=== PATIENT | male | born 1970 | race Caucasian/White ===

== ENCOUNTER 2018-05-19 14:45 | Outpatient (CLI) | payer OTHER ==
[2018-05-19 18:01] LABS: BASOPHILS % (AUTO) 0.2 %; EOSINOPHILS # (AUTO) 0.2 10^3/uL (0.0-0.7); EOSINOPHILS % (AUTO) 2.6 %; HGB - HEMOGLOBIN 15.7 g/dL (14.0-18.0); LYMPHOCYTES # (AUTO) 2.6 10^3/uL (1.5-3.5); LYMPHOCYTES % (AUTO) 30.9 %; MEAN CORPUSCULAR HEMOGLOBIN 31.4 pg (27.0-31.0); MEAN CORPUSCULAR HGB CONC 34.9 g/dL (32.0-36.0); MEAN PLATELET VOLUME 9.6 fL (7.4-11.4); MONOCYTES # (AUTO) 0.7 10^3/uL (0.0-1.0); MONOCYTES % (AUTO) 8.3 %; NEUTROPHILS # (AUTO) 4.9 10^3/uL (1.5-6.6); PLT - PLATELET COUNT 202 10^3/uL (130-450); RED CELL DISTRIBUTION WIDTH 14.4 % (12.0-15.0); WHITE BLOOD COUNT 8.4 x10^3/uL (4.8-10.8)
[2018-05-19 18:14] LABS: ALBUMIN 3.8 g/dL (3.2-5.5); ALBUMIN/GLOBULIN RATIO 1.2 (1.0-2.2); BILIRUBIN,TOTAL 0.9 mg/dL (0.2-1.0); CALCIUM 9.2 mg/dL (8.5-10.3); CREATININE 1.1 mg/dL (0.6-1.2); TOTAL PROTEIN 7.1 g/dL (6.7-8.2)
== END 2018-05-19 14:46 | disposition home or self-care (01) ==
LOC: LAB.F 14:45
PROVIDERS: ATTEND Physician Assistant Medical
DX: I10 Essential (primary) hypertension (principal)
CPT/HCPCS: 36415; 80053; 85025

== ENCOUNTER 2019-03-22 19:14 | Observation (INO) | payer OTHER ==
[2019-03-22 19:37] LABS: EOSINOPHILS % (AUTO) 0.1 %
[2019-03-22 19:40] LABS: BILIRUBIN,URINE NEGATIVE (NEGATIVE); GLUCOSE, URINE (UA) 100 mg/dL (NEGATIVE); KETONES,URINE (UA) NEGATIVE (NEGATIVE); LEUKOCYTE ESTERASE, URINE NEGATIVE (NEGATIVE); NITRITE,URINE NEGATIVE (NEGATIVE); OCCULT BLOOD,URINE SMALL (NEGATIVE); PH,URINE 5.5 PH (5.0-7.5); PROTEIN,URINE TRACE mg/dL (NEGATIVE); UROBILINOGEN,URINE 0.2 (NORMAL) E.U./dL (NORMAL)
[2019-03-22 19:42] LABS: BASOPHILS % (AUTO) 0.2 %; HGB - HEMOGLOBIN 17.9 g/dL (14.0-18.0); LYMPHOCYTES # (AUTO) 1.8 10^3/uL (1.5-3.5); LYMPHOCYTES % (AUTO) 10.1 %; MEAN CORPUSCULAR HGB CONC 32.8 g/dL (32.0-36.0); MEAN CORPUSCULAR VOLUME 91.4 fL (80.0-94.0); MEAN PLATELET VOLUME 9.9 fL (7.4-11.4); MONOCYTES # (AUTO) 1.8 10^3/uL (0.0-1.0); MONOCYTES % (AUTO) 10.2 %; NEUTROPHILS # (AUTO) 13.9 10^3/uL (1.5-6.6); NEUTROPHILS % (AUTO) 78.9 %; PLT - PLATELET COUNT 230 10^3/uL (130-450); RED BLOOD COUNT 5.96 10^6/uL (4.70-6.10); RED CELL DISTRIBUTION WIDTH 14.6 % (12.0-15.0); WHITE BLOOD COUNT 17.6 x10^3/uL (4.8-10.8)
[2019-03-22 19:42] LABS: CLARITY,URINE CLEAR (CLEAR)
[2019-03-22 19:44] LABS: INR 4.3 (0.8-1.2)
[2019-03-22 19:50] LABS: BACTERIA,URINE None Seen /HPF (None Seen); RBC,URINE 0-5 /HPF (0-5); SQUAMOUS EPITHELIAL CELL,UR NONE SEEN (<= Few)
[2019-03-22 19:50] LABS: ALBUMIN 4.1 g/dL (3.2-5.5); ALBUMIN/GLOBULIN RATIO 1.1 (1.0-2.2); BILIRUBIN,TOTAL 1.5 mg/dL (0.2-1.0); CALCIUM 9.2 mg/dL (8.5-10.3); CREATININE 1.1 mg/dL (0.6-1.2); TOTAL PROTEIN 7.8 g/dL (6.7-8.2)
[2019-03-22 20:01] LABS: DIFFERENTIAL COMMENT MANUAL=AUTO DIFF; PLATELET ESTIMATE, MANUAL NORMAL (130-450,000) (NORMAL); PLATELET MORPHOLOGY NORMAL APPEARANCE (NORMAL); RBC MORPHOLOGY (MULTIPLE) NORMAL APPEARANCE (NORMAL)
[2019-03-22] MEDS ORDERED: SODIUM CHLORIDE 0.9% 1,000 ML IV ONE ×2 (20:19→22:07)
--- NOTE | 2019-03-22 20:21 | ED Physician Documentation ---
PD HPI ABD PAIN - Stated complaint Stated Complaint: ABDOMINAL PX - Chief complaint Chief Complaint: Abd Pain - History obtained from History obtained from: Patient - History of Present Illness Timing - onset: How many days ago (2) Timing - duration: Days (2) Timing - details: Still present Pain level max: 8 Pain level now: 5 Quality: Aching Location: Epigastric Associated symptoms: No: Fever, Nausea, Vomiting, Diarrhea Similar symptoms before: Has not had sx before - Additional information Additional information: The patient is a 48-year-old male who presents with epigastric abdominal pain that started 2 days ago and has been getting progressively worse. He describes it as a pressure feeling and today has become a constant aching. He denies fever, nausea or vomiting, diarrhea, or dysuria. He thought he might be constipated so has been using stool softener, but has been having normal bowel movements. He denies history of similar symptoms in the past. His past medical history is significant for coronary artery disease for which he is status post CABG. He has history of type 2 diabetes and atrial fibrillation, on warfarin. He is also status post pacemaker placement. Review of Systems Constitutional: denies: Fever Ears: denies: Tinnitus/ringing Nose: denies: Congestion Throat: denies: Sore throat Cardiac: denies: Chest pain / pressure Respiratory: denies: Dyspnea, Cough GI: reports: Abdominal Pain. denies: Nausea, Vomiting, Diarrhea : denies: Dysuria Skin: denies: Rash Musculoskeletal: denies: Back pain Neurologic: denies: Headache PD PAST MEDICAL HISTORY - Past Medical History Past Medical History: Yes Cardiovascular: Coronary artery disease, Atrial fibrillation Respiratory: None Endocrine/Autoimmune: Type 2 diabetes, Other GI: None : None HEENT: Other Psych: Depression, Post traumatic stress disorder Musculoskeletal: None Derm: None - Past Surgical History Past Surgical History: Yes Cardiovascular: CABG, Pacemaker, AICD - Present Medications Home Medications: Ambulatory Orders Medication Instructions Recorded Confirmed Aspirin [Adult Aspirin Regimen] 81 mg PO DAILY 05/23/18 03/22/19 Atorvastatin [Lipitor] 20 mg PO DAILY 05/23/18 03/22/19 Basal Insulin 130 units SQ QPM 05/23/18 02/05/19 Cholecalciferol [Vitamin D3] 5,000 unit PO DAILY 05/23/18 03/22/19 Furosemide 80 mg PO DAILY 05/23/18 03/22/19 Lisinopril 40 mg PO BIDWM 05/23/18 03/22/19 Metformin HCl [Metformin HCl ER] 500 mg PO QID 05/23/18 03/22/19 Metoprolol Succinate 200 mg PO DAILY 05/23/18 03/22/19 Multivitamin [Multivitamins] 1 ea PO DAILY 05/23/18 03/22/19 [place]-3S/Dha/Epa/Fish Oil [[place]-3 1 ea PO DAILY 05/23/18 03/22/19 Fish Oil 1,200 mg Sfgl] Potassium Citrate [Potassium 10 meq PO DAILY 05/23/18 03/22/19 Citrate ER] Sertraline [Zoloft] 50 mg PO DAILY 05/23/18 03/22/19 Sliding Scale Insulin W/Meals units SQ QID 05/23/18 Warfarin Sodium 7.5 mg PO DAILY 05/23/18 03/22/19 Warfarin Sodium 10 mg PO DAILY 05/23/18 03/22/19 buPROPion [Wellbutrin Sr] 300 mg PO DAILY 05/23/18 03/22/19 - Allergies Allergies/Adverse Reactions: Allergies Allergy/AdvReac Type Severity Reaction Status Date / Time No Known Drug Allergies Allergy Verified 03/22/19 19:19 - Social History Does the pt smoke?: No Smoking Status: Never smoker Does the pt drink ETOH?: No Does the pt have substance abuse?: No - Immunizations Immunizations are current?: No Immunizations: TDAP >10years/unknown - POLST Patient has POLST: No PD ED PE NORMAL - Vitals Vital signs reviewed: Yes (normal) - General General: Alert and oriented X 3, Well developed/nourished, Other (Overweight.) - HEENT HEENT: Atraumatic, Pharynx benign, Other (Dry mucous membranes.) - Neck Neck: Supple, no meningeal sign, No adenopathy - Cardiac Cardiac: RRR, No murmur - Respiratory Respiratory: No respiratory distress, Clear bilaterally - Abdomen Abdomen: Soft, Non tender, Other (Diminished bowel tones.) - Back Back: No CVA TTP - Derm Derm: No rash - Extremities Extremities: No edema, No calf tenderness / cord - Neuro Neuro: Alert and oriented X 3, No motor deficit, Normal speech Results - Vitals Vitals: Vital Signs - 24 hr 03/22/19 03/22/19 03/22/19 19:16 20:17 20:43 Temperature 36.8 C 37.3 C Heart Rate 71 76 78 Respiratory 22 22 17 Rate Blood Pressure 133/83 H 110/60 117/58 L O2 Saturation 96 96 99 03/22/19 03/22/19 03/22/19 21:01 21:44 22:55 Temperature Heart Rate 74 68 72 Respiratory 20 18 22 Rate Blood Pressure 122/67 122/60 124/88 H O2 Saturation 96 98 98 03/23/19 03/23/19 03/23/19 00:00 00:42 02:13 Temperature Heart Rate 69 72 73 Respiratory 23 26 H 29 H Rate Blood Pressure 98/61 118/65 131/100 H O2 Saturation 92 97 94 03/23/19 03/23/19 03/23/19 02:31 03:37 04:45 Temperature Heart Rate 74 71 71 Respiratory 24 29 H 16 Rate Blood Pressure 131/100 H 113/49 L 116/58 L O2 Saturation 95 94 96 Oxygen O2 Source Room air - Labs Labs: Laboratory Tests 03/22/19 03/22/19 03/22/19 19:22 19:30 19:30 WBC 17.6 H RBC 5.96 Hgb 17.9 Hct 54.5 H MCV 91.4 MCH 30.0 MCHC 32.8 RDW 14.6 Plt Count 230 MPV 9.9 Neut # (Auto) 13.9 H Lymph # (Auto) 1.8 [place] # (Auto) 1.8 H Eos # (Auto) 0.0 Baso # (Auto) 0.0 Absolute Nucleated RBC 0.00 Band Neuts % (Manual) Not Reportable Abnorm Lymph % (Manual) Not Reportable Nucleated RBC % 0.0 Neutrophils # (Manual) Not Reportable Lymphocytes # (Manual) Not Reportable Monocytes # (Manual) Not Reportable Eosinophils # (Manual) Not Reportable Basophils # (Manual) Not Reportable Differential Comment MANUAL=AUTO DIFF Manual Slide Review Indicated Platelet Estimate NORMAL (130-450,000) Platelet Morphology NORMAL APPEARANCE RBC Morph Micro Appear NORMAL APPEARANCE PT INR Sodium 137 Potassium 4.1 Chloride 98 L Carbon Dioxide 26 Anion Gap 13.0 BUN 20 Creatinine 1.1 Estimated GFR (MDRD) 71 L Glucose 164 H POC Whole Bld Glucose Calcium 9.2 Total Bilirubin 1.5 H AST 28 ALT 23 Alkaline Phosphatase 56 Total Protein 7.8 Albumin 4.1 Globulin 3.7 Albumin/Globulin Ratio 1.1 Lipase 25 Urine Color YELLOW Urine Clarity CLEAR Urine pH 5.5 Ur Specific [place] 1.025 Urine Protein TRACE Urine Glucose (UA) 100 H Urine Ketones NEGATIVE Urine Occult Blood SMALL H Urine Nitrite NEGATIVE Urine Bilirubin NEGATIVE Urine Urobilinogen 0.2 (NORMAL) Ur Leukocyte Esterase NEGATIVE Urine RBC 0-5 Urine WBC 0-3 Ur Squamous Epith Cells NONE SEEN Urine Bacteria None Seen Ur Microscopic Review INDICATED Urine Culture Comments NOT INDICATED 03/22/19 03/22/19 19:30 19:57 WBC RBC Hgb Hct MCV MCH MCHC RDW Plt Count MPV Neut # (Auto) Lymph # (Auto) [place] # (Auto) Eos # (Auto) Baso # (Auto) Absolute Nucleated RBC Band Neuts % (Manual) Abnorm Lymph % (Manual) Nucleated RBC % Neutrophils # (Manual) Lymphocytes # (Manual) Monocytes # (Manual) Eosinophils # (Manual) Basophils # (Manual) Differential Comment Manual Slide Review Platelet Estimate Platelet Morphology RBC Morph Micro Appear PT 48.0 H INR 4.3 H Sodium Potassium Chloride Carbon Dioxide Anion Gap BUN Creatinine Estimated GFR (MDRD) Glucose POC Whole Bld Glucose 163 H Calcium Total Bilirubin AST ALT Alkaline Phosphatase Total Protein Albumin Globulin Albumin/Globulin Ratio Lipase Urine Color Urine Clarity Urine pH Ur Specific [place] Urine Protein Urine Glucose (UA) Urine Ketones Urine Occult Blood Urine Nitrite Urine Bilirubin Urine Urobilinogen Ur Leukocyte Esterase Urine RBC Urine WBC Ur Squamous Epith Cells Urine Bacteria Ur Microscopic Review Urine Culture Comments - Rads (name of study) CT abd/pelvis Radiology: Prelim report reviewed, EMP read contemporaneously, See rad report (1) Distended gallbladder. Stranding of the fat around the gallbladder and the subtle amount of pericholecystic fluid. No definite gallstones. Findings may be related to a calculus cholecystitis, yet further evaluation with ultrasound might be considered to evaluate for nonopaque gallstones. No intra-nor extrahepatic biliary ductal dilatation. 2) Unremarkable colon. Normal appendix. 3) Undescended right inguinal testicle.) U/S RUQ Radiology: Prelim report reviewed, EMP read contemporaneously, See rad report (Acute cholecystitis. Thickened gallbladder wall measuring 6 mm. Multiple small shadowing gallstones. Mild pericholecystic fluid. Negative sonographic Monique sign.) PD MEDICAL DECISION MAKING - ED course Complexity details: reviewed results, re-evaluated patient, considered differential, d/w patient, d/w family, d/w travel service consultant ED course: The patient's presentation is most consistent with acute cholecystitis, with ul trasound revealing thickened gallbladder wall with pericholecystic fluid, and cholelithiasis. His white count is elevated at 17.6. Liver enzymes are unremarkable except for mildly elevated bilirubin of 1.5. Treatment in the emergency department included administration of Zosyn 4.5 mg IV, and normal saline IV. The patient declined pain medication. I discussed his condition with Dr. Funk, who evaluated him in the emergency department, and accepts him for operative intervention. He was boarded in the emergency department overnight awaiting surgery in the morning. Departure - Departure Disposition: ED Transfer to [facility] Clinical Impression: Cholecystitis Condition: Stable
[2019-03-22] MEDS ORDERED: IOVERSOL 320 100 ML VIAL IVP ONE ×2 (20:39→21:06)
--- NOTE | 2019-03-22 21:15 | CT Report ---
Reason: abdominal pain Procedure Date: 03/22/2019 Accession Number: [id number] / [id number] Procedure: CT - Abdomen/Pelvis W CPT Code: FULL RESULT: EXAM: CT ABDOMEN AND PELVIS EXAM DATE: 03/22/2019 09:01 PM. CLINICAL HISTORY: Abdominal pain. COMPARISONS: None. TECHNIQUE: Routine helical CT imaging was performed through the abdomen and pelvis. IV contrast: OPTI 320 100ML. Enteric contrast: No. Reconstructions: Coronal and sagittal. In accordance with CT protocol optimization, one or more of the following dose reduction techniques were utilized for this exam: automated exposure control, adjustment of mA and/or KV based on patient size, or use of iterative reconstructive technique. FINDINGS: Lung Bases: Unremarkable. Liver: Normal. No masses. Gallbladder/Bile Ducts: The gallbladder is distended. There are no definite gallstones. There is some stranding of the fat around the gallbladder and very subtle pericholecystic fluid. Spleen: Normal. Pancreas: Normal. Adrenal Glands: Normal. Kidneys: Normal. No masses or hydronephrosis. Peritoneal Cavity/Bowel: Normal. No free fluid, free air or adenopathy. No masses or acute inflammatory process. The appendix is well visualized and normal. There is minimal stool in the sigmoid colon and rectum. There are no inflammatory changes of the colon. Pelvic Organs: Normal. The bladder and visualized pelvic organs are within normal limits. There is an undescended right testicle in the right inguinal canal. Vasculature: No aneurysms or other significant abnormality. Bones: No significant abnormality. Other: None. IMPRESSION: 1. Distended gallbladder. Stranding of the fat around the gallbladder and the subtle amount of pericholecystic fluid. No definite gallstones. Findings may be related to a calculus cholecystitis yet further evaluation with ultrasound might be considered to evaluate for non-opaque gallstones. No intra-nor extrahepatic biliary ductal dilatation. 2. Unremarkable colon. Normal appendix. 3. Undescended right inguinal testicle. RADIA
[2019-03-22] MEDS ORDERED: PIPERACILLIN/TAZOBACTAM 4.5 GM in SODIUM CHLORIDE 0.9% MINIBAG 100 ML IV STA (23:10)
--- NOTE | 2019-03-22 23:53 | Ultrasound Report ---
Reason: distended gallbladder on CT, w/o gallstones seen. Procedure Date: 03/22/2019 Accession Number: [id number] / [id number] Procedure: US - Abdomen Limited CPT Code: FULL RESULT: EXAM: ABDOMEN ULTRASOUND LIMITED, RUQ EXAM DATE: 03/22/2019 11:06 PM. CLINICAL HISTORY: Distended gallbladder on CT, w/o gallstones seen. Abdominal pain. COMPARISON: ABDOMEN/PELVIS W/ 03/22/2019 8:49 PM. TECHNIQUE: Real-time scanning was performed with static images obtained. FINDINGS: Liver: Liver echotexture appears within normal limits. There is limited penetration which limits visualization. 24.4 cm. Main portal vein flow: Hepatopetal. Gallbladder: Thickened gallbladder wall measuring 6 mm. Multiple small shadowing gallstones. Mild pericholecystic fluid. Negative sonographic Monique sign. The common duct is not definitely seen, limited visualization. No common duct dilatation is seen on the prior CT. Visualized portions of the pancreas appear unremarkable. The pancreas is not well seen. The right kidney measures 14.8 cm in length and there is no hydronephrosis. IMPRESSION: 1. Acute cholecystitis. Thickened gallbladder wall with pericholecystic fluid. Cholelithiasis. See above. RADIA
[2019-03-23] MEDS ORDERED: diphenhydrAMINE 25 MG CAPSULE PO STA (00:44)
[2019-03-23] MEDS ORDERED: PIPERACILLIN/TAZOBACTAM 4.5 GM in SODIUM CHLORIDE 0.9% MINIBAG 100 ML IV SCH ×4 (05:00→23:00)
[2019-03-23] MEDS ORDERED: BUPIVACAINE 0.5% PF 10 ML VIAL ONE ×2 (07:35→16:18)
--- NOTE | 2019-03-23 08:04 | ANESTHESIA ---
Pre-Anesthesia VS, & Labs - Diagnosis acute cholecystitis - Procedure laparoscopic cholecystectomy Vital Signs: Temp Pulse Resp BP Pulse Ox 37.3 C 75 15 115/52 L 94 03/22/19 20:17 03/23/19 06:14 03/23/19 06:14 03/23/19 06:14 03/23/19 06:14 Height 6 ft 1 in Weight (kg) 129.274 kg Body Mass Index 37.5 - NPO >8 hours - Lab Results Current Lab Results: Laboratory Tests 03/22/19 19:57: POC Whole Bld Glucose 163 H 03/22/19 19:30: PT 48.0 H, INR 4.3 H 03/22/19 19:30: Sodium 137, Potassium 4.1, Chloride 98 L, Carbon Dioxide 26, Anion Gap 13.0, BUN 20, Creatinine 1.1, Estimated GFR (MDRD) 71 L, Glucose 164 H , Calcium 9.2, Total Bilirubin 1.5 H, AST 28, ALT 23, Alkaline Phosphatase 56, Total Protein 7.8, Albumin 4.1, Globulin 3.7, Albumin/Globulin Ratio 1.1, Lipase 25 03/22/19 19:30: WBC 17.6 H, RBC 5.96, Hgb 17.9, Hct 54.5 H, MCV 91.4, MCH 30.0, MCHC 32.8, RDW 14.6, Plt Count 230, MPV 9.9, Neut # (Auto) 13.9 H, Lymph # (Auto) 1.8, [place] # (Auto) 1.8 H, Eos # (Auto) 0.0, Baso # (Auto) 0.0, Absolute Nucleated RBC 0.00, Band Neuts % (Manual) Not Reportable, Abnorm Lymph % (Manual) Not Reportable, Nucleated RBC % 0.0, Neutrophils # (Manual) Not Reportable, Lymphocytes # (Manual) Not Reportable, Monocytes # (Manual) Not Reportable, Eosinophils # (Manual) Not Reportable, Basophils # (Manual) Not Reportable, Differential Comment MANUAL=AUTO DIFF, Manual Slide Review Indicated, Platelet Estimate NORMAL (130-450,000), Platelet Morphology NORMAL APPEARANCE, RBC Morph Micro Appear NORMAL APPEARANCE Fish Bones: 03/22/19 19:30 03/22/19 19:30 Home Medications and Allergies Aspirin [Adult Aspirin Regimen] 81 mg PO DAILY 05/23/18 Atorvastatin [Lipitor] 20 mg PO DAILY 05/23/18 Basal Insulin 130 units SQ QPM 05/23/18 Cholecalciferol [Vitamin D3] 5,000 unit PO DAILY 05/23/18 Furosemide 80 mg PO DAILY 05/23/18 Lisinopril 40 mg PO BIDWM 05/23/18 Metformin HCl [Metformin HCl ER] 500 mg PO QID 05/23/18 Metoprolol Succinate 200 mg PO DAILY 05/23/18 Multivitamin [Multivitamins] 1 ea PO DAILY 05/23/18 [place]-3S/Dha/Epa/Fish Oil [[place]-3 Fish Oil 1,200 mg Sfgl] 1 ea PO DAILY 05/23/18 Potassium Citrate [Potassium Citrate ER] 10 meq PO DAILY 05/23/18 Sertraline [Zoloft] 50 mg PO DAILY 05/23/18 Sliding Scale Insulin W/Meals units SQ QID 05/23/18 Warfarin Sodium 7.5 mg PO DAILY 05/23/18 Warfarin Sodium 10 mg PO DAILY 05/23/18 buPROPion [Wellbutrin Sr] 300 mg PO DAILY 05/23/18 Allergies/Adverse Reactions: Allergies Allergy/AdvReac Type Severity Reaction Status Date / Time No Known Drug Allergies Allergy Verified 03/22/19 19:19 Anes History & Medical History - Anesthetic History Anesthesia Complications: reports: No previous complications Family history of Anesthesia Complications: Denies Family history of Malignant Hyperthermia: Denies - Medical History Cardiovascular: reports: Coronary artery disease, Atrial fibrillation Pulmonary: reports: None Gastrointestinal: reports: None Urinary: reports: None Musculoskeletal: reports: None Endocrine/Autoimmune: reports: Type 2 diabetes, Other Blood Disorders: reports: None Skin: reports: None Smoking Status: Never smoker - Surgical History Cardiothoracic: CABG, Pacemaker, AICD Exam General: Alert, Oriented x3, Cooperative, No acute distress Dental: Other (caps) Mouth Openin Fingerbreadth Neck Mobility: Normal Mallampati classification: III Thyromental Distance: greater than 6 cm Respiratory: Lungs clear, Normal breath sounds, No respiratory distress, No accessory muscle use Cardiovascular: Normal S1, Normal S2 Plan Anesthesia Type: General Consent for Procedure(s) Verified and Reviewed: No Code Status: Attempt Resuscitation ASA classification: 3-Severe systemic disease Is this case an emergency?: No
[2019-03-23] MEDS ORDERED: PHYTONADIONE INJ (ADULT) 10 MG in SODIUM CHLORIDE 0.9% 50 ML IV STA (08:58)
--- NOTE | 2019-03-23 09:29 | CONSULTATION NOTE ---
Referring Provider Name of Referring Provider:: Dr. Guidry Consult Date: 03/22/19 Chief Complaint - Chief Complaint Chief Complaint: Severe RUQ pain consistent with acute cholecystitis History of Present Illness - Admitted From Admitted From:: Outpatient - History Obtained From Records Reviewed: Yes History obtained from: Patient and chart Exam Limitations: None - History of Present Illness HPI Comment/Other: Dr. Guidry called and asked that I evaluate this very pleasant 48-year-old male for the possibility of acute cholecystitis. The patient was first evaluated in room 6 and then this morning in room 9 at [facility]'s emergency department. The symptoms started gradually approximately 2 days ago and worsened to the point where he could not tolerate the pain and came to the emergency room. Although the patient told the ER physician that he did not have any nausea and vomiting there was some nausea but there was no vomiting. The patient denies melena, hematochezia or hematemesis. He has never had these symptoms previously. The pain was described as extremely sharp. There were no alleviating factors. Please note his was present in the room both yesterday and today and both she and the patient and asked very pertinent questions. History - Past Medical History Cardiovascular: reports: Coronary artery disease, Atrial fibrillation Respiratory: reports: None Endocrine/Autoimmune: reports: Type 2 diabetes, Other GI: reports: None : reports: None HEENT: reports: Other Psych: reports: Depression, Post traumatic stress disorder Musculoskeletal: reports: None Derm: reports: None MRSA Hx?: No - Past Surgical History Cardiovascular: reports: CABG, Pacemaker, AICD - POLST Patient has POLST: No Meds/Allgy - Home Medications Home Medications: Ambulatory Orders Medication Instructions Recorded Confirmed Aspirin [Adult Aspirin Regimen] 81 mg PO DAILY 05/23/18 03/22/19 Atorvastatin [Lipitor] 20 mg PO DAILY 05/23/18 03/22/19 Basal Insulin 130 units SQ QPM 05/23/18 02/05/19 Cholecalciferol [Vitamin D3] 5,000 unit PO DAILY 05/23/18 03/22/19 Furosemide 80 mg PO DAILY 05/23/18 03/22/19 Lisinopril 40 mg PO BIDWM 05/23/18 03/22/19 Metformin HCl [Metformin HCl ER] 500 mg PO QID 05/23/18 03/22/19 Metoprolol Succinate 200 mg PO DAILY 05/23/18 03/22/19 Multivitamin [Multivitamins] 1 ea PO DAILY 05/23/18 03/22/19 [place]-3S/Dha/Epa/Fish Oil [[place]-3 1 ea PO DAILY 05/23/18 03/22/19 Fish Oil 1,200 mg Sfgl] Potassium Citrate [Potassium 10 meq PO DAILY 05/23/18 03/22/19 Citrate ER] Sertraline [Zoloft] 50 mg PO DAILY 05/23/18 03/22/19 Sliding Scale Insulin W/Meals units SQ QID 05/23/18 Warfarin Sodium 7.5 mg PO DAILY 05/23/18 03/22/19 Warfarin Sodium 10 mg PO DAILY 05/23/18 03/22/19 buPROPion [Wellbutrin Sr] 300 mg PO DAILY 05/23/18 03/22/19 - Allergies Allergies/Adverse Reactions: Allergies Allergy/AdvReac Type Severity Reaction Status Date / Time No Known Drug Allergies Allergy Verified 03/22/19 19:19 Review of Systems - Constitutional Constitutional: denies: Fatigue - Eyes Eyes: denies: Pain - Ears, Nose & Throat Ears, Nose & Throat: denies: Ear pain - Cardiovascular Cariovascular: reports: Irregular heart rate. denies: Chest pain - Respiratory Respiratory: reports: Snoring. denies: Cough, Sputum production, Wheezing - Gastrointestinal Gastrointestinal: reports: Abdominal pain, Nausea. denies: Rectal bleeding, Black stools, Bloody stools, Vomiting, Bile emesis, [place] blood emesis - Genitourinary Genitourinary: denies: Dysuria - Integumentary Integumentary: denies: Rash - Neurological Neurological: denies: General weakness, Focal weakness - Psychiatric Psychiatric: reports: Other (PTSD) Exam - Vital Signs Reviewed Vital Signs: Yes Vital Signs: Vital Signs x48h Pulse Resp BP Pulse Ox 03/23/19 06:14 75 15 115/52 L 94 03/23/19 04:45 71 16 116/58 L 96 03/23/19 03:37 71 29 H 113/49 L 94 03/23/19 02:31 74 24 131/100 H 95 03/23/19 02:13 73 29 H 131/100 H 94 - Physical Exam General Appearance: positive: No acute distress Eyes Bilateral: positive: No lid inflammation, Conjunctivae nml, No scleral icterus ENT: positive: Dry mucous membranes Neck: positive: Trachea midline Respiratory: positive: Chest non-tender, No respiratory distress, Breath sounds nml Cardiovascular: positive: Irregularly irregular, Other (Midline incision.) Abdomen: positive: Nml bowel sounds, Tenderness (In RUQ exquisite.), Other (Obese.) Skin: positive: Color nml Extremities: positive: Non-tender, Nml appearance, Pedal edema Neurologic/Psychiatric: positive: Oriented x3, Motor nml, Sensation nml, Mood/affect nml Conclusion/Plan - Diagnosis Diagnosis: Acute cholecystitis - Plan Plan: Laparoscopic cholecystectomy, possible open cholecystectomy, possible intraoperative cholangiogram, possible common bile duct exploration. The i ndications, procedure, alternatives including no surgery, possible risks including infection (deep or superficial), bleeding requiring transfusion (with all of its risks), common bile duct injury and were fully explained to the patient and all questions answered. I ronnie pictures to help describe what the gallbladder is and how it works. I also explained the pathophysiology. I explained that following the surgery I did not want him lifting anything over 15 pounds for 6 weeks to allow for optimal healing and to decrease the likelihood that a hernia would occur. All questions were fully answered. Verbal and written consent was obtained. The patient, in preparation for surgery will be nothing by mouth, receive a soap and water shower, and receive 2 g of Ancef with induction. I asked him to contact me with any surgical questions and his concerns and he stated that he would. I asked him to let me know if there is any way we can make his say at [facility] more comfortable and he stated that he would let me know. His INR will be corrected with the infusion of vitamin K. His INR will be rechecked prior to surgery. 45 minutes of [id number] time spent with the patient and his , the majority of which was spent in discussion, coordination of care, and completion of the requisite paperwork Deyanira disclaimer: This document was created in part using voice recognition technology. Because of the inherent limitations of the system ([employer] user manual states that the licensee understands that speech recognition is a statistical process and that recognition errors are inherent in the process), occasional same sounding word substitutions and grammatical errors do occur and persist despite proofreading. Please read this document for context. - Lab Results Lab results reviewed: Yes Fish Bones: 03/22/19 19:30 03/22/19 19:30 - Diagnostic Imaging Results Diagnostic Imaging Results: positive: Final report reviewed
[2019-03-23] MEDS ORDERED: PHYTONADIONE 10 MG/ML AMP ONE (09:38)
[2019-03-23] MEDS ORDERED: LACTATED RINGERS 1,000 ML IV ONE (09:48)
--- NOTE | 2019-03-23 10:48 | CONSULTATION NOTE ---
History - Past Medical History Cardiovascular: reports: Coronary artery disease, Atrial fibrillation Respiratory: reports: None Endocrine/Autoimmune: reports: Type 2 diabetes, Other GI: reports: None : reports: None HEENT: reports: Other Psych: reports: Depression, Post traumatic stress disorder Musculoskeletal: reports: None Derm: reports: None MRSA Hx?: No - Past Surgical History Cardiovascular: reports: CABG, Pacemaker, AICD - POLST Patient has POLST: No Meds/Allgy - Home Medications Home Medications: Ambulatory Orders Medication Instructions Recorded Confirmed Aspirin [Adult Aspirin Regimen] 81 mg PO DAILY 05/23/18 03/22/19 Atorvastatin [Lipitor] 20 mg PO DAILY 05/23/18 03/22/19 Basal Insulin 130 units SQ QPM 05/23/18 02/05/19 Cholecalciferol [Vitamin D3] 5,000 unit PO DAILY 05/23/18 03/22/19 Furosemide 80 mg PO DAILY 05/23/18 03/22/19 Lisinopril 40 mg PO BIDWM 05/23/18 03/22/19 Metformin HCl [Metformin HCl ER] 500 mg PO QID 05/23/18 03/22/19 Metoprolol Succinate 200 mg PO DAILY 05/23/18 03/22/19 Multivitamin [Multivitamins] 1 ea PO DAILY 05/23/18 03/22/19 [place]-3S/Dha/Epa/Fish Oil [[place]-3 1 ea PO DAILY 05/23/18 03/22/19 Fish Oil 1,200 mg Sfgl] Potassium Citrate [Potassium 10 meq PO DAILY 05/23/18 03/22/19 Citrate ER] Sertraline [Zoloft] 50 mg PO DAILY 05/23/18 03/22/19 Sliding Scale Insulin W/Meals units SQ QID 05/23/18 Warfarin Sodium 7.5 mg PO DAILY 05/23/18 03/22/19 Warfarin Sodium 10 mg PO DAILY 05/23/18 03/22/19 buPROPion [Wellbutrin Sr] 300 mg PO DAILY 05/23/18 03/22/19 - Allergies Allergies/Adverse Reactions: Allergies Allergy/AdvReac Type Severity Reaction Status Date / Time No Known Drug Allergies Allergy Verified 03/22/19 19:19 Exam - Vital Signs Vital Signs: Vital Signs x48h Pulse Resp BP Pulse Ox 03/23/19 09:39 79 19 129/79 99 03/23/19 06:14 75 15 115/52 L 94 03/23/19 04:45 71 16 116/58 L 96 03/23/19 03:37 71 29 H 113/49 L 94 Conclusion/Plan - Lab Results Lab results reviewed: Yes Fish Bones: 03/22/19 19:30 03/22/19 19:30
[2019-03-23] MEDS ORDERED: HYDROmorphone 0.5 MG/0.5 ML SYRINGE IVP PRN ×2 (12:08→21:17)
[2019-03-23] MEDS ORDERED: PROCHLORPERAZINE 10 MG/2 ML VIAL IVP PRN (12:08)
[2019-03-23] MEDS ORDERED: SODIUM CHLORIDE FLUSH 0.9% 10 ML SYRINGE IVP PRN ×2 (12:08→21:12)
[2019-03-23] MEDS ORDERED: buPROPion SR 150 MG TABLET PO SCH ×2 (12:16→21:00)
[2019-03-23] MEDS ORDERED: LORazepam 2 MG/ML VIAL IVP PRN (12:20)
[2019-03-23] MEDS ORDERED: ONDANSETRON 4 MG/2 ML VIAL IVP ONE (12:22)
[2019-03-23] MEDS ORDERED: fentaNYL 100 MCG/2 ML VIAL IVP ONE (12:22)
[2019-03-23] MEDS ORDERED: PROPOFOL 200 MG/20 ML VIAL IVP ONE (12:22)
[2019-03-23] MEDS ORDERED: ROCURONIUM 50 MG/5 ML VIAL IVP ONE (12:22)
[2019-03-23] MEDS ORDERED: ACETAMINOPHEN 1,000 MG/100 ML 100 ML IV ONE (12:22)
--- NOTE | 2019-03-23 12:57 | XRAY Report ---
Reason: Hx of CHF, Pre-op eval for GB surg later today Procedure Date: 03/23/2019 Accession Number: [id number] / [id number] Procedure: XR - Chest 1 View X-Ray CPT Code: 46145 FULL RESULT: EXAM: CHEST RADIOGRAPHY EXAM DATE: 03/23/2019 12:46 PM. CLINICAL HISTORY: History of CHF, pre-op evaluation for gallbladder surgery later today. COMPARISON: XR CHEST PA AND LAT 10/04/2010. TECHNIQUE: 1 view. FINDINGS: Lungs/Pleura: No focal opacities evident. No pleural effusion. No pneumothorax. Mediastinum: Interval AICD with persistent cardiomegaly and interval CABG. Pulmonary arteries are prominent. Other: None. IMPRESSION: Interval CABG and AICD with no acute cardiopulmonary abnormality visualized. RADIA
[2019-03-23] MEDS ORDERED: SODIUM CHLORIDE 0.9% 1,000 ML IV SCH ×2 (13:00→21:17)
[2019-03-23] MEDS: INSULIN REGULAR HUMAN 100 UNIT/1 ML 10 ML MDV SUBQ SCH ×2 (13:30→17:33)
[2019-03-23 13:51] LABS: BASOPHILS % (AUTO) 0.3 %; EOSINOPHILS % (AUTO) 0.1 %; HGB - HEMOGLOBIN 16.7 g/dL (14.0-18.0); LYMPHOCYTES % (AUTO) 6.8 %; MEAN CORPUSCULAR HEMOGLOBIN 30.6 pg (27.0-31.0); MEAN CORPUSCULAR VOLUME 92.7 fL (80.0-94.0); MEAN PLATELET VOLUME 10.1 fL (7.4-11.4); MONOCYTES % (AUTO) 9.2 %; NEUTROPHILS % (AUTO) 82.5 %; PLT - PLATELET COUNT 178 10^3/uL (130-450); RED BLOOD COUNT 5.46 10^6/uL (4.70-6.10); WHITE BLOOD COUNT 21.8 x10^3/uL (4.8-10.8)
[2019-03-23 14:03] LABS: ALBUMIN 3.3 g/dL (3.2-5.5); BILIRUBIN,TOTAL 2.6 mg/dL (0.2-1.0); CALCIUM 8.3 mg/dL (8.5-10.3); TOTAL PROTEIN 6.6 g/dL (6.7-8.2)
[2019-03-23 14:21] LABS: HB2 TOTAL 18.4 g/dL; HEMOGLOBIN A1C 1.7 g/dL; HEMOGLOBIN A1C % 10.6 % (4.6-6.2)
[2019-03-23 14:27] LABS: ABNORMAL LYMPHS % (MANUAL) 0 %
[2019-03-23 14:29] LABS: BAND NEUTROPHILS % (MANUAL) 5 %; LYMPHOCYTES # (MANUAL) 2.2 10^3/uL (1.5-3.5); LYMPHOCYTES % (MANUAL) 10 %; MONOCYTES # (MANUAL) 1.7 10^3/uL (0.0-1.0)
[2019-03-23 14:36] LABS: DIFFERENTIAL COMMENT MANUAL DIFFERENTIAL; PLATELET ESTIMATE, MANUAL NORMAL (130-450,000) (NORMAL); PLATELET MORPHOLOGY NORMAL APPEARANCE (NORMAL); RBC MORPHOLOGY (MULTIPLE) 1+ MACROCYTOSIS (NORMAL)
[2019-03-23] MEDS: SERTRALINE 50 MG TABLET PO SCH (14:42)
[2019-03-23] MEDS: METOPROLOL SUCCINATE 50 MG TABLET PO SCH (14:51)
[2019-03-23] MEDS: LISINOPRIL 20 MG TABLET PO SCH ×2 (14:51→17:34)
[2019-03-23] MEDS ORDERED: METOPROLOL SUCCINATE 50 MG TABLET PO ONE (15:22)
[2019-03-23] MEDS ORDERED: PHYTONADIONE INJ (ADULT) 5 MG in SODIUM CHLORIDE 0.9% 50 ML IV ONE (15:22)
[2019-03-23] MEDS: buPROPion SR 150 MG TABLET PO SCH ×2 (15:59→21:58)
--- NOTE | 2019-03-23 17:13 | HISTORY & PHYSICAL EXAMINATION ---
DATE OF SERVICE: 03/23/2019 Physician: Michelle Da Silva MD HISTORY OF PRESENT ILLNESS: This is a 48-year-old white male with a history of diabetes for approximately 20 years, sees an crew car driver, is on very high doses of long-acting and short-acting insulin and reports fingerstick glucose checks in the 120-200 range, which he checks 4 times a day and he thinks his last A1c was about 7. He also has a history of hypertension as well as coronary artery disease, which was found when he started to develop dyspnea and leg edema, leading to an angiogram and he was found to require open heart surgery with bypasses, done 7 years ago, they used the left radial artery. And 6 months later he also required insertion of a defibrillator. There have been no stress tests in the 7 years post bypass surgery, but he reports that all his symptoms of dyspnea and leg edema have never recurred again. The defibrillator still has 1 year of life left in its battery, it is checked by transmitting from a device at his bedside and is monitored by his EP Straight Truck Driver in [place] twice a year. He has never had defibrillation discharge, that he describes to me. The patient also had a prior history of atrial fibrillation and is on Coumadin. He describes a history of PTSD, and got very emotional over the of both of his parents. The patient presented to the emergency room yesterday with abdominal pain and workup there showed that he has acute cholecystitis, surgery was planned, and he was housed in the ER overnight and then transferred to the preop area where anesthesia saw him. Because he had an INR of 4.2, he received Vitamin K 10 mg IV this morning, and his morning surgery slot was canceled and this request for management was sent to the Hospitalist. The patient will be placed in Observation status, with medical management for his diabetes, ischemic cardiomyopathy evaluated preoperatively and his INR will need to be decreased to below 2.0 before he can have surgery. The patient has already consented to the surgery and he is now anxious and stating that his PTSD is acting up since his surgery will now need to be postponed by 6-9 hours. The patient denies any current dyspnea, leg edema, never had chest pain. Denies palpitations, syncope. He is compliant with all his medications. PAST MEDICAL HISTORY: Diabetes on insulin, morbid obesity, coronary artery disease with bypass surgery, history of cardiomyopathy with a defibrillator, paroxysmal atrial fibrillation, is on Coumadin. ALLERGIES: NONE. MEDICATIONS 1. Metoprolol XL 200 mg daily. 2. Lisinopril 40 mg daily. 3. Warfarin 10 mg Saturday and Saturday and 7.5 mg the other days. 4. Metformin 2000 mg a day. 5. Lasix 80 mg daily. 6. Vitamin D3 5000 units daily. 7. Baby aspirin daily. 8. Lipitor 20 mg at bedtime. 9. Wellbutrin 150 mg b.i.d. 10. Fish oil daily. 11. Zoloft 50 mg daily. 12. Potassium citrate 10 mEq daily. 13. Insulin 120 units of glargine every night and 65 units of NovoLog Aspart insulin b.i.d. and on a sliding scale before meals. FAMILY HISTORY: Heart disease on his mother's side. His father of dementia, his mother of medical complications. He has 1 sibling who is healthy, he has no children. SOCIAL HISTORY: He is a nonsmoker, who never smoked, drinks very rare alcohol. No illicit drug use history. The patient is employed, works from home, has a desk job. He lives with his . REVIEW OF SYSTEMS: A comprehensive review of systems was performed and the pertinent positives are listed above, the rest are negative. PHYSICAL EXAMINATION GENERAL: Morbidly obese white male. He is in no distress from pain, but does appear anxious. VITAL SIGNS: Blood pressure 140/70, heart rate 72 in sinus rhythm, afebrile, room air saturation 97%. 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 Moist oral mucosa. NECK: Without JVD and no carotid bruit. CHEST: Clear. HEART: Distant heart sounds normal. No RV heave. ABDOMEN: Obese with a pannus, nontender to light palpation. Decreased bowel sounds. No guarding or rebound. EXTREMITIES: No clubbing, cyanosis or edema. NEUROLOGIC: Grossly intact. LABORATORY DATA: Labs in the ER showed normal electrolytes. Normal BUN and creatinine. Glucose 164, bilirubin 1.5. Normal liver tests. White blood count 17.6, hemoglobin 17.9, platelet count normal at 230. INR was 4.3. On repeat today (one day later), blood tests show normal electrolytes, mildly elevated anion gap of 14, still normal liver tests. Glucose is 283. A1c is 10.6, bilirubin has increased to 2.6. Repeat CBC shows a rising white count of 21.8. Urinalysis shows some glucose and occult blood, small, no bacteruria. He received 10 units of vitamin K and the INR decreased to 2.2 this afternoon. CHEST X-RAY: No active pulmonary disease, normal cardiac size. EKG: Normal sinus rhythm with ventricular bigeminy, left anterior fascicular block, poor R-wave progression, left atrial enlargement. No prior EKG available for comparison. IMPRESSION/DIAGNOSES 1. Acute cholecystitis. 2. Supratherapeutic INR. 3. Ischemic cardiomyopathy with a defibrillator. 4. Defibrillator in place. 5. Coronary artery disease with bypass surgery. 6. Insulin-dependent diabetes mellitus. 7. Hyperglycemia. 8. Morbid obesity. 9. Posttraumatic stress disorder 10. Depression PLAN: Place the patient in Observation status on telemetry bed and proceed with preoperative evaluation with Echo, this EKG (which was done preoperatively) and the (completed) chest x-ray. Recheck his INR again, as this needs further management with vitamin K to correct the INR to below 2.0 in order for surgery to occur. Continue with his blood pressure and cardiac medications, especially the beta blockers preoperatively. Hold the Coumadin perioperatively. Keep him n.p.o. status except for medications, begin a fasting sliding scale insulin coverage plan and continue with his long-acting coverage of insulin. As needed Ativan will be dosed for the current anxiety and resume his oral antidepressants while he is here. His revised cardiac risk index is high: He has a possible intraperitoneal surgery needed for the gallbladder, which is planned to be done under general anesthesia, he has a history of ischemic heart disease, he has a history of heart failure, he has a history of diabetes requiring treatment with insulin. He therefore has 3-4/6 risk factors giving him a rate of cardiac and other major cardiac morbidities of 5.4-9.1% chance of risk perioperatively. DEEP VENOUS THROMBOSIS PROPHYLAXIS: SCDs. CODE STATUS: FULL CODE. ATTESTATION: The patient is expected to be discharged or transferred to another facility within 96 hours: Yes. CC: PCP TD: 03/23/2019 16:56 [email or web address]
[2019-03-23] MEDS: SODIUM CHLORIDE FLUSH 0.9% 10 ML SYRINGE IVP SCH (17:34)
[2019-03-23] MEDS ORDERED: SODIUM CHLORIDE 0.9% 1,000 ML IV ONE (18:18)
[2019-03-23] MEDS ORDERED: BUPIVACAINE 0.5% PF 30 ML VIAL SUBQ ONE (19:07)
[2019-03-23] MEDS ORDERED: SUGAMMADEX 200 MG/2 ML VIAL IVP ONE (20:24)
[2019-03-23] MEDS ORDERED: ACETAMINOPHEN 325 MG TABLET PO PRN (21:12)
[2019-03-23] MEDS ORDERED: oxyCODONE 5 MG TABLET PO PRN (21:12)
[2019-03-23] MEDS ORDERED: INSULIN REGULAR HUMAN 100 UNIT/1 ML 10 ML MDV IVP STA (21:13)
--- NOTE | 2019-03-23 21:23 | OPERATIVE REPORT ---
Operative Report - General Admit Date: 03/23/19 Planned Procedure: Laparoscopic cholecystectomy Pre-Op Diagnosis: Acute cholecystitis Procedure Performed: Laparoscopic cholecystectomy Post Op Diagnosis: Acute necrotizing cholecystitis - Procedure Note Primary Surgeon: Rob Olson MD Anesthesia Provider: Rob Avina MD Anesthesia Technique: General ET tube, Local (30 mL of half percent Marcaine) IV Fluids (mL): 500 Estimated Blood Loss (mL): 200 Drain/Tube Type: Other (None.) Complications: None. - Other Other Information/Narrative: OPERATIVE DESCRIPTION/REPORT: After verbal and written informed consent was obtained detailing the risks of infection, bleeding requiring transfusion with its risks, nerve injury, and , as well as the possibility of a colostomy, and after I met with the patient confirming the surgery, the patient was brought to the operative suite and placed supine on the operating table. Great care was taken to avoid pressure points to prevent pressure necrosis or nerve injury. Monitoring devices were applied along with TEDs and pneumatic compressive stockings (to prevent DVT). The patient received preoperative antibiotics for surgical prophylaxis. Dr. Rob Avina sedated and anesthetized the patient for the entire procedure. The patient was prepped and draped in the usual sterile manner. A "time in" then confirmed that the patient was identified with 3 identifiers (name, date and medical record number), the history and physical was in the chart, the signed consent confirming the procedure was in the chart, the patient was in the correct position, the aforementioned prophylactic measures were in place or given, we had the correct personnel and equipment to complete the procedure and that anesthesia, surgery and nursing were given an opportunity to express any concerns. With the agreement of everyone in the room, we proceeded with the operation. The initial incision was at the umbilicus and dissection to the linea alba was completed using blunt dissection. The linea alba was grasped with a King and incised. In a similar manner the peritoneum was grasped and incised using Metzenbaum scissors. In this location, a 12 mm blunt tipped, balloon tipped port was placed and the balloon was inflated to keep the port in position. The abdominal cavity was insufflated with carbon dioxide to steady-state pressure of 12 mmHg. Three additional 5 mm ports were placed in standard location for laparoscopic cholecystectomy (subxiphoid and 2 right subcostal) under direct vision of the 30 degree laparoscope and without incident. The patient was then placed in reverse Trendelenburg position and was rotated slightly to their left. Upon entering the abdomen there were dense adhesions of omentum to the gallbladder consistent with acute cholecystitis. These were taken down using a combination of LigaSure as well as traction and countertraction. Once these were taken down it was apparent that this was one of the largest gallbladders I had ever encountered. It was easily 7-10 times the normal size. Due to its large and distended nature I could not grasp it. Using a laparoscopic needle and a syringe I drained 240 mL from the gallbladder and it was still clearly the largest gallbladder I had encountered. Drain the fluid did allow me to grasp the gallbladder due to some laxity in the wall. The gallbladder fundus was grasped with an atraumatic grasper. Multiple adhesions had to be taken down by blunt and sharp dissection along with electrocautery. Eventually, we identified the infundibulum, and this was then grasped and retracted inferior and laterally. Dissection was then begun in the angle of [place]. The cystic duct and (slightly medially and posteriorly) cystic artery were clearly identified. The critical view was obtained. Two clips proximally and one clip distally were used to control both the cystic duct and cystic artery. The clips were carefully placed to avoid occluding the juncture with the common bile duct. Both the cystic duct and then the cystic artery were then transected with laparoscopic kallie. The gallbladder was then removed from its fossa in a retrograde fashion using electrocautery. With the 30 degree 5 mm scope in the subxiphoid position, the gallbladder was placed in an EndoCatch bag. To give another description of how big the gallbladder was when I put it in the EndoCatch bag I had to stuff the gallbladder into the bag and apply pressure in order to close the bag. I irrigated the right upper quadrant with a liter of warm sterile saline, and the area was aspirated dry. I inspected the gallbladder fossa and there was no bleeding or bile leak. Clips on the cystic duct and cystic artery appeared to be secure. I briefly visually explored the abdomen. There was no other evidence of overt pathology. I injected the port sites at the peritoneal, fascial, and skin levels under direct vision with 0.5% Marcaine. All ports and the EndoCatch containing the gallbladder were removed. The incision had to be markedly enlarged in order to remove the Endo Catch bag containing the gallbladder. Following gallbladder removal, the remaining carbon dioxide was expelled from the abdomen. The fascia at the umbilicus was reapproximated using 2 [id number] 0 Vicryl sutures. The skin at each port site was approximated using a subcuticular 4-0 Monocryl. The surgical count of instruments, needles and sponges was reported as correct twice. The skin was cleaned of its prep and Dermabond was applied. The patient was then awakened from anesthesia, extubated, and having tolerated the procedure well, was transported to the recovery room. No complications were encountered. A "time out" confirmed the operation performed, the fluids given, the estimated blood loss and anesthesia, surgery and nursing were given an opportunity to express any concerns. [employer] disclaimer: This document was created in part using voice recognition technology. Because of the inherent limitations of the system ([employer] user manual states that the licensee understands that speech recognition is a statistical process and that recognition errors are inherent in the process), occasional same sounding word substitutions and grammatical errors do occur and persist despite proofreading. Please read this document for context.
[2019-03-23] MEDS ORDERED: TESTOSTERONE CYPIONATE 200 MG/ML VIAL IM SCH (22:00)
[2019-03-23] MEDS: FAMOTIDINE 20 MG/2 ML VIAL IVP SCH (22:13)
[2019-03-23 22:28] LABS: BASOPHILS % (AUTO) 0.3 %; EOSINOPHILS % (AUTO) 0.5 %; HGB - HEMOGLOBIN 16.6 g/dL (14.0-18.0); LYMPHOCYTES % (AUTO) 4.2 %; MEAN CORPUSCULAR HEMOGLOBIN 30.9 pg (27.0-31.0); MEAN CORPUSCULAR HGB CONC 33.3 g/dL (32.0-36.0); MEAN CORPUSCULAR VOLUME 92.7 fL (80.0-94.0); MEAN PLATELET VOLUME 10.1 fL (7.4-11.4); MONOCYTES % (AUTO) 10.3 %; NEUTROPHILS % (AUTO) 83.5 %; PLT - PLATELET COUNT 191 10^3/uL (130-450); RED BLOOD COUNT 5.37 10^6/uL (4.70-6.10); RED CELL DISTRIBUTION WIDTH 14.8 % (12.0-15.0); WHITE BLOOD COUNT 20.7 x10^3/uL (4.8-10.8)
[2019-03-23 22:30] LABS: ABNORMAL LYMPHS % (MANUAL) 0 %
[2019-03-23 22:32] LABS: INR 1.9 (0.8-1.2); PT - PROTHROMBIN TIME 20.8 secs (9.9-12.6)
[2019-03-23 22:39] LABS: ALBUMIN 3.4 g/dL (3.2-5.5); BILIRUBIN,TOTAL 2.3 mg/dL (0.2-1.0); CALCIUM 8.2 mg/dL (8.5-10.3); CREATININE 1.2 mg/dL (0.6-1.2); TOTAL PROTEIN 6.8 g/dL (6.7-8.2)
[2019-03-23 22:41] LABS: BAND NEUTROPHILS % (MANUAL) 5 %; LYMPHOCYTES # (MANUAL) 1.4 10^3/uL (1.5-3.5); LYMPHOCYTES % (MANUAL) 7 %; MONOCYTES # (MANUAL) 1.7 10^3/uL (0.0-1.0); PLATELET ESTIMATE, MANUAL NORMAL (130-450,000) (NORMAL); PLATELET MORPHOLOGY NORMAL APPEARANCE (NORMAL); RBC MORPHOLOGY (MULTIPLE) NORMAL APPEARANCE (NORMAL)
[2019-03-23 22:42] LABS: DIFFERENTIAL COMMENT MANUAL DIFFERENTIAL
[2019-03-24] MEDS: INSULIN REGULAR HUMAN 100 UNIT/1 ML 10 ML MDV SUBQ SCH ×2 (00:15→06:39)
[2019-03-24] MEDS: SODIUM CHLORIDE FLUSH 0.9% 10 ML SYRINGE IVP SCH ×4 (05:36→08:43)
[2019-03-24] MEDS: PIPERACILLIN/TAZOBACTAM 4.5 GM in SODIUM CHLORIDE 0.9% MINIBAG 100 ML IV SCH ×2 (05:38→11:01)
[2019-03-24 05:56] LABS: INR 1.8 (0.8-1.2); PT - PROTHROMBIN TIME 20.1 secs (9.9-12.6)
[2019-03-24 05:58] LABS: BASOPHILS % (AUTO) 0.3 %; EOSINOPHILS % (AUTO) 0.1 %; HGB - HEMOGLOBIN 15.5 g/dL (14.0-18.0); LYMPHOCYTES # (AUTO) 1.5 10^3/uL (1.5-3.5); LYMPHOCYTES % (AUTO) 9.5 %; MEAN CORPUSCULAR HEMOGLOBIN 31.3 pg (27.0-31.0); MEAN CORPUSCULAR HGB CONC 33.3 g/dL (32.0-36.0); MEAN CORPUSCULAR VOLUME 93.8 fL (80.0-94.0); MEAN PLATELET VOLUME 10.7 fL (7.4-11.4); MONOCYTES # (AUTO) 1.5 10^3/uL (0.0-1.0); MONOCYTES % (AUTO) 9.6 %; NEUTROPHILS # (AUTO) 12.4 10^3/uL (1.5-6.6); NEUTROPHILS % (AUTO) 79.6 %; PLT - PLATELET COUNT 173 10^3/uL (130-450); RED BLOOD COUNT 4.96 10^6/uL (4.70-6.10); RED CELL DISTRIBUTION WIDTH 14.9 % (12.0-15.0); WHITE BLOOD COUNT 15.5 x10^3/uL (4.8-10.8)
[2019-03-24 06:04] LABS: ALBUMIN 2.9 g/dL (3.2-5.5); ALBUMIN/GLOBULIN RATIO 0.8 (1.0-2.2); BILIRUBIN,TOTAL 1.5 mg/dL (0.2-1.0); CALCIUM 7.9 mg/dL (8.5-10.3); TOTAL PROTEIN 6.4 g/dL (6.7-8.2)
[2019-03-24] MEDS ORDERED: PANTOPRAZOLE 40 MG TABLET PO SCH (07:00)
[2019-03-24] MEDS: INSULIN ASPART 300 UNIT/3 ML PEN SUBQ SCH ×2 (07:54→11:42)
[2019-03-24] MEDS ORDERED: MULTIVITAMIN TABLET PO SCH (08:00)
[2019-03-24] MEDS ORDERED: TESTOSTERONE CYPIONATE 200 MG/ML VIAL IM SCH (08:00)
[2019-03-24] MEDS: SERTRALINE 50 MG TABLET PO SCH (08:40)
[2019-03-24] MEDS: METOPROLOL SUCCINATE 50 MG TABLET PO SCH (08:40)
[2019-03-24] MEDS: buPROPion SR 150 MG TABLET PO SCH (08:41)
[2019-03-24] MEDS: FAMOTIDINE 20 MG/2 ML VIAL IVP SCH (08:42)
--- NOTE | 2019-03-24 08:49 | Discharge Plan ---
Discharge Plan Problem Reviewed?: Yes Disposition: Home, Self Care Condition: Stable Prescriptions: Enoxaparin [Lovenox] 60 mg SUBQ Q12H #4 syringe Diet: Diabetic Activity Restrictions: Additional Comments (No driving until you see Dr. Olson in followup No lifting greater than 15 pounds for 6 weeks) Shower Restrictions: No Driving Restrictions: No Instruction Topics: Enoxaparin injection, Abdomen Surg Dc, Cholecystectomy Laparoscopic, Snoring Sleep Apnea Health Concerns: You presented to our emergency room yesterday with abdominal pain and were found to have acute cholecystitis. That is inflammation and infection of the gallbladder due to stones. You were placed in the hospital overnight and we had to get you ready for surgery by reversing the effects of Coumadin. You were given vitamin K, fresh frozen plasma, and were able to have an uneventful surgery. You can now go home, but will need to resume your Coumadin. While here we identified you as having severe obstructive sleep apnea. The nurses and the anesthesiologist reported that you would stop breathing for several seconds at a time. Your diabetes was out of control with an A1c of 10.6% with an average glucose of 258. At times your glucose was over 300. Plan of Treatment: Treatment for your problems included surgery, Lantus and short acting insulin, antibiotics, and observation for your apnea to quantify how severe it was. Care Goals: 1. Follow-up with your primary care provider Jeannette Nunez. You have indicated that you may be changing primary care providers in the near future. Until you do so, I strongly recommend you follow-up with Ms. Nunez to make sure you get referrals for the sleep lab and obstructive sleep apnea evaluation. 2. Follow-up with your manager technical for better control of your glucose. 3. Follow-up with Dr. Olson in 1 to 2 weeks. Keep your wound dry. You can take a shower but just do not soak in a tub until you see him. 4. He will need to take Lovenox, a short acting blood thinner, for the next 2 days until the Coumadin that you usually take will bring your INR greater than 2. Please follow-up with Jeannette Nunez on your INR on a weekly basis until we know that you are safely above 2 and less than 3. Assessment: Patient understands recommendations but disagrees with evaluation for obstructive sleep apnea but will discuss with his PCP in followup. No Smoking: If you smoke, Please STOP! Call for help. Follow-up with: Jeannette Nunez PA-C [Primary Care Provider] -
[2019-03-24] MEDS ORDERED: DHA PO SCH (09:00)
[2019-03-24] MEDS ORDERED: LISINOPRIL 20 MG TABLET PO SCH (09:00)
[2019-03-24] MEDS ORDERED: ATORVASTATIN 10 MG TABLET PO SCH (09:00)
[2019-03-24] MEDS ORDERED: CHOLECALCIFEROL 5,000 UNIT CAPSULE PO SCH (09:00)
[2019-03-24] MEDS ORDERED: EPA PO SCH (09:00)
[2019-03-24] MEDS ORDERED: POTASSIUM CITRATE 10 MEQ PO SCH (09:00)
[2019-03-24] MEDS ORDERED: FISH OIL PO SCH (09:00)
[2019-03-24] MEDS ORDERED: FUROSEMIDE 40 MG TABLET PO SCH (09:00)
[2019-03-24] MEDS ORDERED: OMEGA PO SCH (09:00)
--- NOTE | 2019-03-24 11:03 | CONSULTATION NOTE ---
History - Past Medical History Cardiovascular: reports: Coronary artery disease, Atrial fibrillation Respiratory: reports: None Endocrine/Autoimmune: reports: Type 2 diabetes, Other GI: reports: None : reports: None HEENT: reports: Other Psych: reports: Depression, Post traumatic stress disorder Musculoskeletal: reports: None Derm: reports: None MRSA Hx?: No - Past Surgical History General: Cardiovascular: reports: CABG, Pacemaker, AICD HEENT: reports: Other - POLST Patient has POLST: No Meds/Allgy - Home Medications Home Medications: Ambulatory Orders Medication Instructions Recorded Confirmed Aspirin [Adult Aspirin Regimen] 81 mg PO DAILY 05/23/18 03/23/19 Atorvastatin [Lipitor] 20 mg PO DAILY 05/23/18 03/23/19 Cholecalciferol [Vitamin D3] 5,000 unit PO DAILY 05/23/18 03/23/19 Furosemide 80 mg PO DAILY 05/23/18 03/23/19 Lisinopril 40 mg PO DAILY 05/23/18 03/23/19 Metformin HCl [Metformin HCl ER] 2,000 mg PO DAILY 05/23/18 03/23/19 Metoprolol Succinate 200 mg PO DAILY 05/23/18 03/23/19 Multivitamin [Multivitamins] 1 ea PO DAILY 05/23/18 03/22/19 [place]-3S/Dha/Epa/Fish Oil [[place]-3 1 cap PO DAILY 05/23/18 03/23/19 Fish Oil 1,200 mg Sfgl] Sertraline [Zoloft] 50 mg PO DAILY 05/23/18 03/23/19 Warfarin Sodium 7.5 mg PO SUTUWETHSA 05/23/18 03/23/19 Warfarin Sodium 10 mg PO MOFR 05/23/18 03/23/19 buPROPion [Wellbutrin Sr] 150 mg PO BID 05/23/18 03/23/19 Insulin Aspart [NovoLOG] 65 units SUBQ BID MDD sliding 03/23/19 03/23/19 scale;dose varies Insulin Glargine,Hum.rec.anlog 120 units SUBQ QPM MDD 140 units 03/23/19 03/23/19 [Basaglar Kwikpen U-100] Testosterone Cypionate 0.3 ml IM Q10D 03/23/19 03/23/19 Enoxaparin [Lovenox] 60 mg SUBQ Q12H #4 syringe 03/24/19 Potassium Chloride 10 meq PO DAILY 03/24/19 03/24/19 - Allergies Allergies/Adverse Reactions: Allergies Allergy/AdvReac Type Severity Reaction Status Date / Time No Known Drug Allergies Allergy Verified 03/22/19 19:19 Exam - Vital Signs Vital Signs: Vital Signs x48h Temp Pulse Pulse Resp BP Pulse Ox 03/24/19 08:00 37.0 C 75 20 128/60 99 03/24/19 07:36 36.7 C 67 18 97 03/24/19 06:28 36.7 C 63 20 116/62 97 03/24/19 02:30 36.5 C 66 18 130/61 95 Conclusion/Plan - Lab Results Lab results reviewed: Yes Fish Bones: 03/24/19 05:09 03/24/19 05:09
[2019-03-24 12:12] VITALS: BP 120/61
[2019-03-24] MEDS ORDERED: INSULIN GLARGINE 300 UNIT/3 ML PEN SUBQ SCH (21:00)
--- NOTE | 2019-03-29 03:03 | DISCHARGE SUMMARY ---
Physician: Florida Morales MD DATE OF ADMISSION: 03/23/2019 DATE OF DISCHARGE: 03/24/2019 PRIMARY CARE PROVIDER: Jeannette Nunez PA-C DISCHARGE DIAGNOSES 1. Acute necrotizing cholecystitis. 2. Supratherapeutic INR. 3. Ischemic cardiomyopathy. 4. Chronic systolic congestive heart failure. 5. Automatic implantable cardioverter-defibrillator in place. 6. Coronary artery disease. 7. Type 2 diabetes mellitus, uncontrolled, with complications, with long-term use of insulin. 8. Morbid obesity. 9. Probable obstructive sleep apnea. 10. Depression with posttraumatic stress disorder secondary to his bypass surgery history. 11. Chronic atrial fibrillation. DISCHARGE MEDICATIONS 1. Aspirin 81 mg daily. 2. Lipitor 20 mg daily. 3. Wellbutrin SR 150 mg p.o. b.i.d. 4. Vitamin D 5000 units daily. 5. Lasix 80 mg daily. 6. Lantus insulin 120 units subcutaneous p.m. 7. NovoLog short-acting insulin 65 units subcutaneous b.i.d. as a sliding scale before meals. 8. Metformin extended release 2000 mg daily. 9. Metoprolol succinate 200 mg daily. 10. Multivitamin tablet daily. 11. [place]-3 fish oil daily. 12. Potassium chloride 10 mEq p.o. daily. 13. Zoloft 50 mg daily. 14. Testosterone cypionate 0.3 mL IM q.10 days. 15. Coumadin 7.5 mg on Saturday, Saturday, Saturday, , Saturday, and 10 mg Saturday, Saturday. 16. Lovenox 60 mg subcutaneously b.i.d. for the next two days. PRINCIPAL PROCEDURES 1. Laparoscopic cholecystectomy. 2. Abdomen and pelvis CT on 03/22/2019 showing unremarkable lung bases, normal liver. Gallbladder i s distended with no gallstones. There is stranding of the fat around the gallbladder and very subtle pericholecystic fluid. Ultrasound recommended. Undescended right inguinal testicle. 3. Abdominal ultrasound showing acute cholecystitis with a thickened gallbladder wall with perichole cystic fluid. Cholelithiasis seen. Common bile duct not visualized. 4. Chest x-ray with interval CABG and AICD in place when compared to chest x-ray from 10/04/2010. N o acute cardiopulmonary abnormality visualized. 5. Gallbladder fluid culture without growth. 6. Gallbladder fluid culture for anaerobic bacteria without growth. HOSPITAL COURSE: The patient is a 48-year-old morbidly obese white male who has a history of diabete s for 20 years, is on very high doses of long-acting and short-acting insulin and reports fingerstick glucose checks between the 120-200 range. He also has hypertension, coronary artery disease. He waters d open heart surgery with bypass surgery done seven years prior to admission. Six months later, he required an AICD. He also has chronic atrial fibrillation, on Coumadin. Because of his bypass surge ry, he developed PTSD and also gets very emotional when discussing the of both of his parents. He presented to the emergency room the day before admission with abdominal pain and workup there show ed he had acute cholecystitis. Surgery was planned. He was housed in the emergency room overnight a nd transferred to the preoperative area this morning where anesthesia saw him. He had identified INR of 4.2 and he received vitamin K last night and this morning. Because the INR was 4.2 even after th e vitamin K from last night, surgery was canceled and we were consulted. Because of IT data cleopatra g, it was not apparent that the patient was on Coumadin. Apparently, the list only goes to 10 drugs and you have to learn to scroll past those 10 drugs to know if he is on more drugs. Coumadin was on the last page and it was not known that he was on Coumadin before surgery. The patient was anxious, stating that his PTSD was acting up since his surgery needs to be postponed by 6-9 hours. He was not septic on admission. Revised cardiac index was high. He needed intraperitoneal surgery f or gallbladder, under general anesthesia with a history of ischemic heart disease. He has a history of heart failure, and diabetes requiring insulin. Therefore, he has up to four risk factors giving h im a cardiac and other major cardiac morbidities of 5.4-9.1 percent chance. The patient's INR eventually came down to the required level. He went from 4.3, to 2.0, to 2.9. He underwent an uneventful laparoscopic cholecystectomy. He was kept overnight for pain management and to start advancing his diet and to control his glucose. During his stay, both nursing and anesthesia noted that he has a severe obstructive sleep apnea. He will have up to 30-second pauses in his carlo thing and then he begins to struggle and eventually gasp a breath with snoring. Diabetes was managed with Lantus and sliding scale insulin. Glucose was in the 250-295 range in the 24 hours he was here. A1c is 10.6%. There was no acute exacerbation of his chronic systolic heart failure. AICD did not go off. At [facility], he was complaining that PTSD was starting to bother him again because of being told about his obstructive sleep apnea and his disagreement with that diagnosis. At discharge, the patient was sitting upright in bed, at the bedside and providing emotional sup port. He had eaten breakfast without any difficulty. Temperature was 37.1, pulse was 70 and irregul ar in rate control. Blood pressure 120/61, respirations 20 and unlabored, and 94% on room air. He i s 6 feet 1 inch tall and weighs close to 130 kg. Morbidly obese. Alert, oriented. Unable to assess for JVD because of thick neck. Lungs have diminished breath sounds in the bases and would only get tachypneic when he was excited or nervous. Otherwise, at rest, he had unlabored respiration with rufina ar lungs. He had a slow irregular rate and rhythm. The abdomen was obese, soft, and laparoscopic po rts were closed, no bleeding or cellulitis of the abdominal wall. Legs were large, trace edema. He was asked to follow up with his primary care provider. He said he was in the midst of changing of fices. I said until then, please follow up with his first primary care provider office, and please a sk for referral for the sleep lab because of the observed obstructive sleep apnea during his stay. A gain, he disagreed with his diagnosis and it is unclear if he is going to follow up. He said he did not want to discuss the matter any further because of PTSD was acting up. We asked him to please abby henley up with his business functional analyst for better glucose control with an aim of less than 7%. He is to abby henley up with Dr. Olson in one to two weeks. Keep his wounds dry. He can take a shower, but do not soak in the tub until you see him. He needed to take Lovenox, a short-acting blood thinner, for two more days because his INR had dropped to less than 2, to 1.8 on the day of discharge. He has been r esumed on his usual dose of Coumadin. cc: Jeannette Nunez PA-C TD: 03/28/2019 18:04
== END 2019-03-24 12:23 | disposition home or self-care (01) ==
LOC: ED 19:14 → SDS 03-23 00:44 → MS2 03-23 12:08 → INTOOBSV 03-23 12:08 → UNDOADMOB 03-23 12:08 → MS2 03-23 14:11 → UNDODISOB 03-24 12:23
PROVIDERS: ADMIT Internal Medicine; ATTEND Specialist
PROC: 0FT44ZZ Resection of Gallbladder, Percutaneous Endoscopic Approach (ICD-10-PCS; principal; 2019-03-22)
DX: K80.12 Calculus of gallbladder with acute and chronic cholecystitis without obstruction (principal); K82.8 Other specified diseases of gallbladder; D68.8 Other specified coagulation defects; I25.5 Ischemic cardiomyopathy; I50.22 Chronic systolic (congestive) heart failure; I11.0 Hypertensive heart disease with heart failure; I25.10 Atherosclerotic heart disease of native coronary artery without angina pectoris; E11.65 Type 2 diabetes mellitus with hyperglycemia; E66.01 Morbid (severe) obesity due to excess calories; F43.10 Post-traumatic stress disorder, unspecified; I48.2 Chronic atrial fibrillation; F32.9 Major depressive disorder, single episode, unspecified; Z79.01 Long term (current) use of anticoagulants; Z79.4 Long term (current) use of insulin; Z95.810 Presence of automatic (implantable) cardiac defibrillator; Z95.1 Presence of aortocoronary bypass graft; Z79.82 Long term (current) use of aspirin; Z68.37 Body mass index [BMI] 37.0-37.9, adult
CPT/HCPCS: 36415; 47562; 71045; 74177; 76705; 80053; 81001; 83036; 83690; 85025; 85610; 86850; 86900; 86901; 87070; 87205; 93005; 93306; 94660; 96361; 96365; 96366; 96367; 96375; 99284; 99285; A9270; G0378; J0131; J1815; J2060; J7040; J7120; P9017; Q9967; 81003; 87086

== ENCOUNTER 2019-03-30 09:07 | Outpatient (CLI) | payer OTHER | END 2019-03-30 09:08 | disposition home or self-care (01) | LOC: LAB 09:07 | PROVIDERS: ATTEND Internal Medicine Cardiovascular Disease | DX: I48.92 Unspecified atrial flutter (principal) | CPT/HCPCS: 85610 ==

== ENCOUNTER 2021-11-23 13:16 | Outpatient (CLI) | payer OTHER ==
[2021-11-23 17:57] LABS: BASOPHILS % (AUTO) 0.6 %; EOSINOPHILS # (AUTO) 0.2 10^3/uL (0.0-0.7); EOSINOPHILS % (AUTO) 2.8 %; HCT - HEMATOCRIT 48.7 % (42.0-52.0); HGB - HEMOGLOBIN 16.5 g/dL (14.0-18.0); LYMPHOCYTES # (AUTO) 2.3 10^3/uL (1.5-3.5); LYMPHOCYTES % (AUTO) 32.3 %; MEAN CORPUSCULAR HEMOGLOBIN 32.5 pg (27.0-31.0); MEAN CORPUSCULAR HGB CONC 33.9 g/dL (32.0-36.0); MEAN CORPUSCULAR VOLUME 96.1 fL (80.0-94.0); MEAN PLATELET VOLUME 10.9 fL (7.4-11.4); MONOCYTES # (AUTO) 0.6 10^3/uL (0.0-1.0); MONOCYTES % (AUTO) 8.7 %; NEUTROPHILS % (AUTO) 55.5 %; PLT - PLATELET COUNT 227 10^3/uL (130-450); RED BLOOD COUNT 5.07 10^6/uL (4.70-6.10); RED CELL DISTRIBUTION WIDTH 12.9 % (12.0-15.0); WHITE BLOOD COUNT 7.2 x10^3/uL (4.8-10.8)
== END 2021-11-23 13:17 | disposition home or self-care (01) ==
LOC: LAB.N 13:16
PROVIDERS: ATTEND Internal Medicine
DX: I10 Essential (primary) hypertension (principal); Z12.5 Encounter for screening for malignant neoplasm of prostate
CPT/HCPCS: 36415; 81599; 84153; 84402; 84403; 85025